=== PATIENT | male | born 1995 | race Hispanic/Latino ===

== ENCOUNTER 2021-06-07 04:18 | Emergency (ER) | payer OTHER ==
[~2021-06-07] VITALS: Ht 165.1 cm; Wt 90.7 kg
[2021-06-07 04:37] VITALS: BP 143/98
[2021-06-07] MEDS ORDERED: SULF1TAB42 PO (05:53)
[2021-06-07] MEDS ORDERED: ONDA4TAB10 PO (05:53)
[2021-06-07 06:00] VITALS: BP 133/89
[2021-06-07] MEDS ORDERED: SULFAMETHOX-TMP DS 800/160 TAB PO SCH (06:00)
[2021-06-07] MEDS ORDERED: ONDANSETRON ODT 4MG TAB SL ONE (06:00)
[2021-06-07] MEDS ORDERED: IBUPROFEN 600 MG TABLET PO ONE (06:00)
[2021-06-07] MEDS ORDERED: SULFAMETHOX-TMP DS 800/160 TAB ONE (06:10)
[2021-06-07] MEDS ORDERED: ONDANSETRON ODT 4MG TAB ONE (06:11)
[2021-06-07] MEDS ORDERED: IBUPROFEN 600 MG TABLET ONE (06:11)
== END 2021-06-07 06:30 | disposition home or self-care (01) ==
LOC: EDH 04:37
DX: S10.91XA Abrasion of unspecified part of neck, initial encounter (principal); L73.9 Follicular disorder, unspecified; L03.012 Cellulitis of left finger; Z79.1 Long term (current) use of non-steroidal anti-inflammatories (NSAID); Z79.899 Other long term (current) drug therapy; W22.8XXA Striking against or struck by other objects, initial encounter; Y93.89 Activity, other specified; Y92.89 Other specified places as the place of occurrence of the external cause; Y99.8 Other external cause status

== ENCOUNTER 2024-09-19 03:30 | Inpatient (IN) | payer BC ==
[~2024-09-19] VITALS: Ht 175.3 cm; Wt 103.7 kg
[~2024-09-19 03:30] MED LIST: ONDA-243 PO; SULF1TAB42 PO
[2024-09-19 04:10] LABS: BASOPHILS # (AUTO) 0.08 K/uL (0.00-0.20); BASOPHILS % (AUTO) 0.7 % (0.0-5.0); EOSINOPHILS # (AUTO) 0.09 K/uL (0.00-0.70); EOSINOPHILS % (AUTO) 0.8 % (0.0-8.0); HEMATOCRIT 46.7 % (42-54); LYMPHOCYTES # (AUTO) 0.9 K/uL (1.0-4.8); LYMPHOCYTES % (AUTO) 7.7 % (21.0-51.0); MEAN CORPUSCULAR HEMOGLOBIN 32.5 pg (27.0-33.0); MEAN CORPUSCULAR HGB CONC 36.8 g/dL (32.0-36.0); MEAN CORPUSCULAR VOLUME 88.1 fL (79-99); MONOCYTES # (AUTO) 0.4 K/uL (0.1-1.0); MONOCYTES % (AUTO) 3.8 % (3.0-13.0); NEUTROPHILS # (AUTO) 9.8 K/uL (1.8-7.7); NEUTROPHILS % (AUTO) 86.1 % (40.0-77.0); PLATELET COUNT (AUTO) 271 K/uL (130-400); RED CELL DISTRIBUTION WIDTH 11.9 % (11.0-15.5); WHITE BLOOD COUNT (AUTO) 11.4 K/uL (4.8-10.8)
[2024-09-19 04:13] LABS: POTASSIUM 3.8 mmol/L (3.5-5.1)
[2024-09-19] MEDS: leveTIRACEtam 500 MG/5 ML SD VIAL IV SCH (04:25)
[2024-09-19] MEDS: LACTATED RINGERS 1000ML 1,000 ML IV ONE (04:46)
[2024-09-19 04:54] LABS: AMPHET/METH SCREEN,URINE NEGATIVE (NEGATIVE); BARBITURATE SCREEN, URINE NEGATIVE (NEGATIVE); BENZODIAZEPINES SCREEN,URINE POSITIVE (NEGATIVE); CANNABINOID SCREEN,URINE NEGATIVE (NEGATIVE); COCAINE SCREEN,URINE NEGATIVE (NEGATIVE); PHENCYCLIDINE SCREEN,URINE NEGATIVE (NEGATIVE)
[2024-09-19 05:03] LABS: OPIATE SCREEN,URINE NEGATIVE (NEGATIVE)
--- NOTE | 2024-09-19 06:03 | BSKYNEURO ---
[facility] Procedure Note [facility] Consult Consult [facility] Note # Demographics Consult Type: General Neurology Patient Location: Emergency Room First Name: JUAN CARLOS Last Name: DELFINA Date of : 1995 Age: 28 Gender: Male Facility: [facility] Time of Initial Page (Central Time): 09/19/2024, 05:31 Time of Return Call (Central Time): 09/19/2024, 05:32 # HPI History: 28 yo man who presented with seizure at home. He takes xanax regularly and has been trying to quit. He went cold turkey on the xanax several days ago. Never has had a seizure before. # Scores Time of exam and NIHSS (Central Time): 09/19/2024, 05:41 Level of Consciousness 1a: [0] = Alert; keenly responsive LOC Questions 1b: [0] = Answers both questions correctly LOC Commands 1c: [0] = Performs both tasks correctly Best Gaze 2: [0] = Normal Visual 3: [0] = No visual loss Facial Palsy 4: [0] = Normal symmetrical movements Motor Arm Left 5a: [0] = No drift Motor Arm Right 5b: [0] = No drift Motor Leg Left 6a: [0] = No drift Motor Leg Right 6b: [0] = No drift Limb Ataxia 7: [0] = Absent Sensory 8: [0] = Normal Best Language 9: [0] = No aphasia Dysarthria 10: [0] = Normal Extinction and Inattention 11: [0] = No abnormality NIHSS Total: 0 # Data Head CT: - no bleed # Assessment Impression: Seizure, suspect from benzodiazepine withdrawal Will complete seizure work up as this is first time seizure # Plan Target Blood Pressure: SBP < 160 Labs: - CBC - comprehensive metabolic panel - TSH - ua - urine drug screen Other: - If patient has any neurological deterioration please call me back immediately - I have discussed my recommendations with the referring provider Additional Recommendations: Admit for seizure work up benzo withdrawal protocol MRI brain w/wo contrast Routine EEG. Will not start anti seizure medication after first seizure. If any abnormality on EEG or MRI, can consider starting keppra until outpatient neurology follow up. Seizure precaution Primary team will need to discuss local state laws regarding seizures and driving with the patient. Disposition: admit # Logistics Attestation of consult completion: The patient is located at: [facility]. Facility staff participated in the visit. I performed this telemedicine visit from my offsite office utilizing interactive 2 way audio and visual telecommunication technology. Total time spent in telemedicine encounter: I spent 33 minutes reviewing clinical data and/or imaging, obtaining history, examining the patient, communicating with the onsite care team, and in preparation of this report. # Demographics First Name: JUAN CARLOS Last Name: MATHIS Facility: [facility] MATT CRESPO DO Sep 19, 2024 06:03
--- NOTE | 2024-09-19 06:19 | ERN ---
General Chief Complaint: Seizure Stated Complaint: SEIZURE, AFIB RVR Time Seen by MD: 03:33 History of Present Illness Initial Comments Mr Campuzano is a 28-year-old male who comes in with a chief complaint of seizure. Patient apparently takes Xanax and was weaning himself off the medication. Patient was brought in by his brother after he noticed him convulsing. Upon evaluation in the patient seems to be back to normal. Patient does not have any issues with a postictal changes Allergies: Coded Allergies: No Known Allergies (Unverified Allergy, Unknown, 06/07/21) Home Meds Active Scripts Ondansetron (Ondansetron Odt) 4 Mg Tab.rapdis, 4 MG PO Q6HPRN, #20 TAB 0 Refills Prov:YASIR LEMON MD 06/07/21 Sulfamethoxazole/Trimethoprim (Bactrim Ds Tablet) 1 Each Tablet, 1 TAB PO BID for 10 Days, #20 TAB 0 Refills Prov:YASIR LEMON MD 06/07/21 Past Medical History Past Medical History: No Pertinent History Past Surgical History: None ROS Dictation Constitutional: Negative for fever,chills, and weight loss Eyes: Negative for injury, pain,redness, and discharge ENT: Negative for injury,pain or swelling Cardiovascular: Negative for chest pain, palpitations, and edema Respiratory: Negative for shortness of breath, cough, and wheezing, Abdomen/GI: Negative for abdominal pain, nausea, vomiting, diarrhea, and constipation Back: Negative for injury and pain : Negative for injury, bleeding and discharge MS/Extremity: Negative for injury and deformity Skin: Negative for rash, and discoloration Neuro: Positive for seizures Psych: Negative for suicide ideation, homicidal ideation, and hallucinations Got going on Physical Exam Physical Exam Dictation General: awake, alert, NAD Head/Face: Normocephalic, atraumatic Eyes: PERRL, EOMI, vision at baseline ENT: oral cavity clear, Neck: Trachea midline, supple, Cardiovascular: RRR, normal S1/S2, No MRGs, no JVD Respiratory: CTAB, no respiratory distress, No rales or wheezes Abdomen: Soft, non-tender, non-distended, normal bowel sounds, no guarding or rebound. Skin: Warm, dry, normal turgor, no rash MS/Extremity: Pulses equal, no cyanosis, neurovascular intact, FROM Neuro: COAx4, GCS 15, strength 5/5, CN 2-12 intact Results Laboratory and Microbiology Lab and Micro Result Laboratory Tests Test 09/19/24 03:54 09/19/24 04:39 White Blood Count 11.4 K/uL (4.8-10.8) H Red Blood Count 5.30 MIL/uL (4.50-6.20) Hemoglobin 17.2 g/dL (14.0-18.0) Hematocrit 46.7 % (42-54) Mean Corpuscular Volume 88.1 fL (79-99) Mean Corpuscular Hemoglobin 32.5 pg (27.0-33.0) Mean Corpuscular Hemoglobin Concent 36.8 g/dL (32.0-36.0) H Red Cell Distribution Width 11.9 % (11.0-15.5) Platelet Count 271 K/uL (130-400) Mean Platelet Volume 8.8 fL (7.5-10.5) Immature Granulocyte % (Auto) 0.9 % (0-1) Neutrophils (%) (Auto) 86.1 % (40.0-77.0) H Lymphocytes (%) (Auto) 7.7 % (21.0-51.0) L Monocytes (%) (Auto) 3.8 % (3.0-13.0) Eosinophils (%) (Auto) 0.8 % (0.0-8.0) Basophils (%) (Auto) 0.7 % (0.0-5.0) Neutrophils # (Auto) 9.8 K/uL (1.8-7.7) H Lymphocytes # (Auto) 0.9 K/uL (1.0-4.8) L Monocytes # (Auto) 0.4 K/uL (0.1-1.0) Eosinophils # (Auto) 0.09 K/uL (0.00-0.70) Basophils # (Auto) 0.08 K/uL (0.00-0.20) Absolute Immature Granulocyte (auto 0.10 K/uL (0-1) Nucleated Red Blood Cells 0.0 % (0.0-0.19) White Cell Morphology Comment See comments Red Blood Cell Morphology POIKILOCYTOSIS 1+ Sodium Level 132 mmol/L (136-145) L Potassium Level 3.8 mmol/L (3.5-5.1) Chloride Level 97 mmol/L (101-111) L Carbon Dioxide Level 22 mmol/L (21-32) Blood Urea Nitrogen 7 mg/dL (7-18) Creatinine 1.0 mg/dL (0.5-1.3) Glomerular Filtration Rate Calc 104 mL/min (>90) Random Glucose 126 mg/dL (70-105) H Total Calcium 9.6 mg/dL (8.5-10.1) Urine Opiates Screen NEGATIVE (NEGATIVE) Urine Barbiturates Screen NEGATIVE (NEGATIVE) Urine Phencyclidine Screen NEGATIVE (NEGATIVE) Urine Amphetamines Screen NEGATIVE (NEGATIVE) Urine Benzodiazepines Screen POSITIVE (NEGATIVE) H Urine Cocaine Screen NEGATIVE (NEGATIVE) Urine Marijuana (THC) Screen NEGATIVE (NEGATIVE) MDM Patient was time will be admitted for MRI brain as per recommendations by tele neurology MDM: Differential diagnosis: Seizure disorder Rationale: Tests considered and ordered secondary to shared decision making include: labs, ECG and radiology Previous outside records reviewed: Old ER visits. Risk of complication and/or morbidity or mortality of patient management: None Medications-Per medication reconciliation Need for hospitalization: Patient does meet criteria for hospitalization. Need for emergency major/minor surgery: No There are no social concerns with this patient. Prescription drug management Prescriptions will include symptomatic care Patient's prior external medical records from other ER visits were reviewed by me as indicated. Prior testing and results from previous visits were reviewed. Prior tests were taken into account with medical decision making and resource utilization, independent historian/historians were used to obtain complete medical history. I independently interpreted the test that were performed, results were reviewed by me and considered findings on radiology if ordered. Medical management and examination interpretation discussions were had by me with other qualified healthcare professionals as indicated for the patient's care. ED Course Orders Procedure Category Date Status Time Cbc With Differential LAB 09/19/24 Complete 03:34 Ct Head/Brain W/O CT 09/19/24 Taken Contrast 03:34 Lactated Ringers PHA 09/19/24 In Process 1000ml (Lactated 04:00 Basic Metabolic Panel LAB 09/19/24 Complete 03:34 Levetiracetam 500 PHA 09/19/24 In Process Mg/5 Ml Sd V (Keppra 5 04:00 12 Lead Ekg Tracing- EKG 09/19/24 Logged Technical 03:58 Drug Screen Urine LAB 09/19/24 Complete 04:00 Current Medications Medications (Trade) Dose Ordered Sig/Gabino Route PRN Reason Start Time Stop Time Status Last Admin Dose Admin Lactated Ringer's 1,000 ml @ 125 mls/hr ONCE ONCE IV 09/19/24 04:00 09/19/24 11:59 09/19/24 04:46 Levetiracetam (kepPRA 500 MG/5 ML SD VIAL) 1,000 mg ONCE IV 09/19/24 04:00 10/19/24 03:59 09/19/24 04:25 Vital Signs Date Time Temp Pulse Resp B/P (MAP) Pulse Ox O2 Delivery O2 Flow Rate FiO2 09/19/24 05:01 86 14 125/88 99 Room Air* 0 21 09/19/24 04:01 98.4 98 19 123/79 96 Room Air* 0 09/19/24 03:31 98.1 96 16 106/50 98 Nasal Cannula 0 DX & DISP Disposition: Inpatient Departure Impression: Primary Impression: Seizure Condition: Stable Referrals: KARLOS DIOR MD (PCP) SANDRA DIOR MD Sep 19, 2024 06:19
[2024-09-19] MEDS ORDERED: PHARMACY COMMUNICATION MISC PRN (06:30)
[2024-09-19] MEDS ORDERED: ondanSETRON ODT 4MG TAB SL PRN (06:30)
--- NOTE | 2024-09-19 06:52 | EKG ---
[facility] Test Date: 2024-09-19 Test Time: 03:57:02 Pat Name: JUAN CARLOS MATHIS Department: [facility] Room: 423 Gender: M [employer]ing: [id number] : 1995 Requested By: SANDRA DIOR Order Number: [id number] Reading MD: Wayne Treviño Measurements Intervals [place] Rate: 95 P: 30 CT: 149 QRS: 8 QRSD: 90 T: 31 QT: 331 QTc: 415 Interpretive Statements Sinus rhythm Inferior infarct, old Borderline ST elevation, anterolateral leads No previous ECG available for comparison Electronically Signed On 09-21-2024 18:31:27 [employer] SERVICE [employer]ENT by Wayne Treviño Please click the below link to view image of tracing.
--- NOTE | 2024-09-19 08:13 | HMCIMG ---
CT HEAD/BRAIN W/O CONTRAST HISTORY: Seizure COMPARISON: None TECHNIQUE: Multiple sequential axial images of the head were obtained from the base of the skull through vertex. Patient was not given contrast through intravenous route. FINDINGS: The ventricles and extraventricular CSF spaces are nondilated for patient's age. There is no midline shift, mass effect or herniation. No acute intracranial bleed is seen. Visualized portion of the paranasal sinuses are grossly within normal limits. IMPRESSION: 1. No acute intracranial bleed is seen. CT was performed with one or more following dose reduction techniques: automated exposure control, adjustment of the mA and kv according to patient's size, or use of a iterative reconstruction technique.
[2024-09-19] MEDS: THIAMINE HCL 100 MG TABLET PO SCH (08:48)
[2024-09-19] MEDS: acetaMINOPHEN 325 MG TAB PO PRN (08:48)
[2024-09-19] MEDS: FOLic ACID 1 MG TABLET PO SCH (08:48)
--- NOTE | 2024-09-19 11:00 | HMCIMG ---
MR BRAIN WO CON HISTORY: Seizures COMPARISON: None TECHNIQUE: MRI of the brain was performed utilizing multiple pulse sequences in axial, coronal and sagittal planes. Patient was not given contrast through intravenous route. FINDINGS: The ventricles and extraventricular CSF spaces are nondilated for patient's age. There is no midline shift, mass effect or herniation. No subacute hemorrhage is seen. No MR evidence of acute infarct is seen in the diffusion weighted images. Cerebellar tonsils are in normal position. There are bilateral ethmoid and maxillary sinusitis with mucoperiosteal thickening. No MR evidence of a mass lesion is seen in this noncontrast study. IMPRESSION: 1. No MR evidence of acute infarct is seen in the diffusion weighted images.
[2024-09-19 22:20] VITALS: BP 143/58; PULSE 61; RESP 21; TEMP 98.7
[2024-09-20] VITALS (7 sets, daily range): BP systolic 123–152; BP diastolic 68–94; PULSE 53–77; RESP 18–20; TEMP 97.9–98.9; O2SAT 96
--- NOTE | 2024-09-20 03:29 | HP ---
DATE OF SERVICE: 09/19/2024. HISTORY AND PHYSICAL PRESENTING COMPLAINT: Witnessed seizure. HISTORY OF PRESENT ILLNESS: A 28-year-old male with history of obesity and benzodiazepine abuse, presented to the hospital with witnessed seizure. The patient was found this morning with generalized tonic-clonic seizure. The patient has no fecal or urinary retention. The patient's seizure was witnessed by ____. The patient has a history of Xanax abuse and has been trying to get off use. The patient claims he started using Xanax about one week ago. Has not been seen any physician. No chest pain. No palpitation or orthopnea. CT of the brain and MRI came back unremarkable. No chest pain. PAST MEDICAL HISTORY: * Morbid obesity. * Xanax abuse. PAST SURGICAL HISTORY: None. ALLERGIES: None. HOME MEDICATIONS: None. SOCIAL HISTORY: The patient drinks socially. No tobacco abuse, besides Xanax. FAMILY HISTORY: Noncontributory. REVIEW OF SYSTEMS: Greater than 10 systems were reviewed, negative except as documented above. PHYSICAL EXAMINATION: GENERAL: Young male, awake. VITAL SIGNS: Temperature 98.4, pulse 72, respiratory rate 16, and BP 163/91. EYES: No icterus. Pupils equal and reactive. HENT: No oral thrush seen. Moist oral mucosa. NECK: Supple, no JVD or thyromegaly. LUNGS: Good air entry. No rales, no rhonchi. CARDIOVASCULAR: S1, S2 regular. No murmur heard. ABDOMEN: Obese, soft, and nontender. Bowel sounds present. CENTRAL NERVOUS SYSTEM: Awake, alert, and oriented x 3. No focal deficits. SKIN: No rashes, no itchiness. LYMPHATIC: No peripheral lymphadenopathy. HEMATOLOGIC: No bleeding or petechial lesion seen. MUSCULOSKELETAL: No joint swelling, erythema, or tenderness. BACK: No deformity, no pressure ulcer. LABORATORY DATA: Sodium 132, potassium 3.8, BUN 7, and creatinine 1.0. WBC 11.4, hemoglobin 17.2, and platelet 271. Urine toxicology is positive for benzodiazepine. RADIOLOGY: Brain MRI unremarkable. ASSESSMENT: A 28-year-old male presenting with witnessed seizure. CURRENT PROBLEMS: Include: * New onset seizure due to benzodiazepine withdrawal. * Benzodiazepine abuse. * Obesity. * Leukocytosis. * Dehydration. PLAN: * The patient will be admitted to medical floor with telemetry. * Psychiatric evaluation. * Fall precaution. * Seizure precaution. * The patient will be placed on CIWA protocol. * The patient will be given Ativan as needed. * Monitor electrolytes and correct as needed. TID: [id number] RECEIPT: [id number]
[2024-09-20 04:55] LABS: BASOPHILS % (AUTO) 1.1 % (0.0-5.0); EOSINOPHILS # (AUTO) 0.23 K/uL (0.00-0.70); EOSINOPHILS % (AUTO) 2.5 % (0.0-8.0); HEMATOCRIT 43.1 % (42-54); IMMATURE GRANULOCYTE ABSOLUTE 0.08 K/uL (0-1); LYMPHOCYTES # (AUTO) 1.7 K/uL (1.0-4.8); LYMPHOCYTES % (AUTO) 17.9 % (21.0-51.0); MEAN CORPUSCULAR HEMOGLOBIN 31.9 pg (27.0-33.0); MEAN CORPUSCULAR HGB CONC 35.5 g/dL (32.0-36.0); MEAN CORPUSCULAR VOLUME 89.8 fL (79-99); MONOCYTES # (AUTO) 0.5 K/uL (0.1-1.0); MONOCYTES % (AUTO) 5.8 % (3.0-13.0); NEUTROPHILS # (AUTO) 6.6 K/uL (1.8-7.7); NEUTROPHILS % (AUTO) 71.8 % (40.0-77.0); PLATELET COUNT (AUTO) 267 K/uL (130-400); RED CELL DISTRIBUTION WIDTH 12.4 % (11.0-15.5); WHITE BLOOD COUNT (AUTO) 9.2 K/uL (4.8-10.8)
[2024-09-20 05:06] LABS: CREATININE 0.8 mg/dL (0.5-1.3); MAGNESIUM 2.3 mg/dL (1.80-2.40); POTASSIUM 3.7 mmol/L (3.5-5.1)
--- NOTE | 2024-09-20 17:55 | PN ---
INFECTIOUS DISEASE PROGRESS NOTE Date of Service: Sep 20, 2024 SUBJECTIVE: Patient was seen and examined at bedside in room 423. Patient is awake, alert and oriented x3. No seizure activity reported within the last 24 hours. Patient is pending a psychiatrist evaluation. No reports of fever, temperature is 99.0. Will discharge patient tomorrow if cleared by psychiatrist and stable. We will continue to monitor patient. PHYSICAL EXAM EYES: Anicteric. Pupils equal and reactive. HENT: No oral thrush seen, moist Oral mucosa NECK: Supple, no JVD or thyromegaly. LUNGS: Good air entry. No rales, no rhonchi. CARDIOVASCULAR: S1, S2 regular. No murmur heard. ABDOMEN: Soft, non tender, bowel sounds present, no organomegaly CENTRAL NERVOUS SYSTEM: Awake, alert, oriented x 3. No focal deficits. SKIN: No rashes, no swelling. LYMPHATICS: No peripheral lymphadenopathy MUSCULOSKELETAL: No joint swelling, erythema or tenderness. EXTREMITIES: No cyanosis or clubbing BACK: No deformity, no pressure ulcer. GENITOURINARY: No dysuria or hematuria Vital Sign (Last 12 Hours) 09/20/24 09/20/24 09/20/24 08:00 12:00 16:00 Temp 98.1 99.0 97.9 Pulse 53 68 77 Resp 18 18 19 B/P (MAP) 123/94 152/79 149/93 Pulse Ox 96 99 95 O2 Delivery Room Air Room Air Room Air LABS: Laboratory: Test 09/20/24 04:17 09/19/24 04:39 09/19/24 03:54 Range/Units White Blood Count 9.2 4.8-10.8 K/uL Red Blood Count 4.80 4.50-6.20 MIL/uL Hemoglobin 15.3 14.0-18.0 g/dL Hematocrit 43.1 42-54 % Mean Corpuscular Volume 89.8 79-99 fL Mean Corpuscular Hemoglobin 31.9 27.0-33.0 pg Mean Corpuscular Hemoglobin Concent 35.5 32.0-36.0 g/dL Red Cell Distribution Width 12.4 11.0-15.5 % Platelet Count 267 130-400 K/uL Mean Platelet Volume 8.9 7.5-10.5 fL Immature Granulocyte % (Auto) 0.9 0-1 % Neutrophils (%) (Auto) 71.8 40.0-77.0 % Lymphocytes (%) (Auto) 17.9 L 21.0-51.0 % Monocytes (%) (Auto) 5.8 3.0-13.0 % Eosinophils (%) (Auto) 2.5 0.0-8.0 % Basophils (%) (Auto) 1.1 0.0-5.0 % Neutrophils # (Auto) 6.6 1.8-7.7 K/uL Lymphocytes # (Auto) 1.7 1.0-4.8 K/uL Monocytes # (Auto) 0.5 0.1-1.0 K/uL Eosinophils # (Auto) 0.23 0.00-0.70 K/uL Basophils # (Auto) 0.10 0.00-0.20 K/uL Absolute Immature Granulocyte (auto 0.08 0-1 K/uL Nucleated Red Blood Cells 0.0 0.0-0.19 % Sodium Level 134 L 136-145 mmol/L Potassium Level 3.7 3.5-5.1 mmol/L Chloride Level 100 L 101-111 mmol/L Carbon Dioxide Level 25 21-32 mmol/L Blood Urea Nitrogen 7 7-18 mg/dL Creatinine 0.8 0.5-1.3 mg/dL Glomerular Filtration Rate Calc 122 >90 mL/min Random Glucose 100 70-105 mg/dL Total Calcium 8.9 8.5-10.1 mg/dL Magnesium Level 2.30 1.80-2.40 mg/dL Urine Opiates Screen NEGATIVE NEGATIVE Urine Barbiturates Screen NEGATIVE NEGATIVE Urine Phencyclidine Screen NEGATIVE NEGATIVE Urine Amphetamines Screen NEGATIVE NEGATIVE Urine Benzodiazepines Screen POSITIVE H NEGATIVE Urine Cocaine Screen NEGATIVE NEGATIVE Urine Marijuana (THC) Screen NEGATIVE NEGATIVE White Cell Morphology Comment See comments Red Blood Cell Morphology POIKILOCYTOSIS 1+ ASSESSMENT: New seizure onset secondary to benzodiazepine withdrawal. Benzodiazepine abuse. Dehydration. Leukocytosis. PLAN: Pending a psychiatric evaluation. Seizure precautions. Continue CIWA protocol. We will monitor electrolytes and replace as needed. Plan to discharge tomorrow if cleared by psychiatrist and if stable. This case was reviewed and discussed with my supervising physician and the above assessment and plan was formulated and agreed upon. ATTESTATION BY PHYSICIAN I have seen and examined the patient. I reviewed the documentation, medical decision making, and treatment plan as noted by the mid-level provider above. I agree with the findings and plan of care. JASON AL MD, MIRTA L [facility] Sep 20, 2024 17:55
[2024-09-20] MEDS ORDERED: PHARMACY COMMUNICATION MISC PRN (20:00)
[2024-09-21] VITALS: BP 133/79; PULSE 58; RESP 20; TEMP 98
[2024-09-21 04:00] VITALS: BP 133/84; PULSE 55; RESP 20; TEMP 98.5
[2024-09-21 07:47] VITALS: BP 158/80; PULSE 62; RESP 18; TEMP 98.2
[2024-09-21 08:00] VITALS: O2SAT 100
--- NOTE | 2024-09-21 11:42 | DS ---
DATE OF SERVICE: 09/21/2024 PRESENTING COMPLAINT: Witnessed seizure. HOSPITAL COURSE: A 28-year-old male with history of Xanax abuse, who presented to the hospital with witnessed seizure. The patient was brought to the Emergency Room. Imaging of the brain was done came back negative. The patient has history of Xanax abuse. Recently stopped medication 1 week ago. The patient admitted as a case of benzodiazepine withdrawal. The patient has been seen by Psychiatry who cleared him for discharge. No witnessed seizure for the past 48 hours. The patient tolerated orally. Fully awake and alert. FINAL DISCHARGE DIAGNOSES: * ____ seizure. * Benzodiazepine withdrawal. * Obesity. * Xanax abuse. PLAN: * The patient to be discharged home. * The patient to follow up with primary care physician. * The patient to follow up with psychiatrist as needed. TID: [id number] RECEIPT: [id number]
[2024-09-21 11:55] VITALS: BP 157/86; PULSE 57; RESP 18; TEMP 98.2
--- NOTE | 2024-09-22 22:14 | CONS ---
I am ____ for Dr. Marilyn Xavier, psychiatry on Wednesday09/20/2024. LOCATION: Room #423, at [facility]. HISTORY OF PRESENT ILLNESS: The patient is a 28-year-old single male, not , no children. The patient has a history of benzodiazepine abuse, overdose on Xanax. The patient was brought in by an ambulance and was presented to ER with seizures and accompanied by his brother. The patient's parents are , has 2 sisters and 3 brothers. The patient admits to drinking alcohol, has two DWIs, one in 2019 and another in 2020. 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 The patient reports going to bed and brother noticed the patient was seizing, brother called an ambulance at that time. The patient had a CT and MRI showed unremarkable. Urine toxicology report showed positive for benzodiazepine. The patient was referred to psychiatric services by Dr. Hubbard. ASSESSMENT FOR PATIENT: The patient may leave the hospital after 24 hours with no present seizures. Upon discharge, the patient is to follow up with PCP about benzo withdrawals. Also, the patient was advised to think about future goals and what he wants to do moving forward with his life. DIAGNOSIS: Substance abuse, Z71.51. Thank you so much for calling psych services. TID: [id number] RECEIPT: [id number]
== END 2024-09-21 14:55 | disposition home or self-care (01) | DRG 101 ==
LOC: EDH 03:30 → EDHIP 06:04 → 4DH 21:42
PROVIDERS: ADMIT Internal Medicine Infectious Disease; ATTEND Internal Medicine Infectious Disease
DX: G40.89 Other seizures (principal); F13.139 Sedative, hypnotic or anxiolytic abuse with withdrawal, unspecified; E86.0 Dehydration; E66.01 Morbid (severe) obesity due to excess calories; D72.829 Elevated white blood cell count, unspecified; Z68.33 Body mass index [BMI] 33.0-33.9, adult; Z79.899 Other long term (current) drug therapy
CPT/HCPCS: 36415; 70450; 70551; 80048; 80305; 83735; 85025; 93005; G0378; J1953